=== PATIENT | female | born 1975 | race African-American/Black ===

== ENCOUNTER → 2016-12-22 | Outpatient (CLI) | payer OTHER ==
[2015-03-10 18:47] VITALS: BP 103/64
--- NOTE | 2016-12-22 19:02 | KCIC ---
Bilateral digital screening mammograms with CAD: HISTORY Routine screening COMPARISON Baseline exam. FINDINGS Breast density category C. The skin and nipples show no abnormalities. No abnormal lymph nodes are seen in the axilla. The breast parenchyma shows heterogeneous density. There are no dominant masses, suspicious calcifications or architectural distortions. IMPRESSION No evidence of malignancy. Recommend routine annual mammographic screening. This study was interpreted with the benefit of Computerized Aided Detection (CAD). Mammography is not 100% sensitive in detecting breast cancer. Therefore, a self breast exam and a clinical breast exam are very important. A negative mammogram does not negate a clinically suspicious finding and should not result in a delay in biopsying a clinically suspicious abnormality. BI-RADS category 1. Negative. This patient's information has been entered into a reminder system for the patient to be notified with the results of this examination and a target date for her next mammograms. Electronically signed by: Angelic Mehta MD (Dec 22, 2016 19:00:53)
== END | disposition home or self-care (01) ==
LOC: KCIC MAMMO 14:44
PROVIDERS: ATTEND Family Medicine
DX: Z12.31 Encounter for screening mammogram for malignant neoplasm of breast (principal)
CPT/HCPCS: G0202; 77067

== ENCOUNTER 2018-03-28 02:18 | Emergency (ER) | payer BC, OTHER ==
[2018-03-28] MEDS: KETOROLAC 15 MG/ML VIAL. IV (03:26)
[2018-03-28 03:46] LABS: BILIRUBIN,URINE NEGATIVE (NEG); CLARITY,URINE CLEAR; COLOR,URINE YELLOW; GLUCOSE,URINE NEGATIVE (NEG); NITRITE,URINE NEGATIVE (NEG); PH,URINE 5.5; PROTEIN,URINE NEGATIVE (NEG-TRACE); UROBILINOGEN,URINE 0.2 mg/dL (0.2 mg/dL)
[2018-03-28 03:48] LABS: ADD MAN DIFF? NO
[2018-03-28 03:50] LABS: BASO # 0.1 x10^3/uL (0.0-0.2); BASO % 1 % (0-3); EOS # 0.1 x10^3/uL (0.0-0.7); EOS % 2 % (0-3); HEMATOCRIT 36.8 % (36.0-47.0); HEMOGLOBIN 12.9 g/dL (12.0-15.5); LYMPH # 2.6 x10^3/uL (1.0-4.8); LYMPH % 33 % (24-48); MEAN CORPUSCULAR HEMOGLOBIN 32 pg (25-35); MEAN CORPUSCULAR HGB CONC 35 g/dL (31-37); MEAN CORPUSCULAR VOLUME 92 fL (79-100); MONO # 0.7 x10^3/uL (0.0-1.1); MONO % 9 % (0-9); NEUT # 4.5 x10^3uL (1.8-7.7); NEUT % 56 % (31-73); PLATELET COUNT 384 x10^3/uL (140-400); RED BLOOD COUNT 3.99 x10^6/uL (3.50-5.40); RED CELL DISTRIBUTION WIDTH 13.4 % (11.5-14.5); WHITE BLOOD COUNT 8.1 x10^3/uL (4.0-11.0)
[2018-03-28 04:08] LABS: ANION GAP 8 (6-14); BACTERIA,URINE 0 /HPF (0-FEW); BLOOD UREA NITROGEN 11 mg/dL (7-20); BUN/CREATININE RATIO 14 (6-20); CALCIUM 9.3 mg/dL (8.5-10.1); CARBON DIOXIDE 25 mmol/L (21-32); CHLORIDE 103 mmol/L (98-107); CREATININE 0.8 mg/dL (0.6-1.0); GFR 94.3; GLUCOSE 99 mg/dL (70-99); POTASSIUM 3.6 mmol/L (3.5-5.1); RBC,URINE OCC /HPF (0-2); SODIUM 136 mmol/L (136-145); WBC,URINE OCC /HPF (0-4)
[2018-03-28 04:09] LABS: SQUAMOUS EPITHELIAL CELL,UR MOD /LPF
[2018-03-28 04:11] LABS: NEG OBC SER NEG; POS OBC SER POS; PREG TEST PT QUAL NEGATIVE (NEG)
[2018-03-28 04:14] LABS: ALBUMIN 3.9 g/dL (3.4-5.0); ALBUMIN/GLOBULIN RATIO 1.1 (1.0-1.7); ALK PHOS 52 U/L (46-116); ALT (SGPT) 16 U/L (14-59); AST (SGOT) 13 U/L (15-37); LIPASE 147 U/L (73-393); TOTAL BILIRUBIN 0.5 mg/dL (0.2-1.0); TOTAL PROTEIN 7.6 g/dL (6.4-8.2)
[2018-03-28 04:24] LABS: TROPONINI < 0.017 ng/mL (0.000-0.055)
[2018-03-28] MEDS ORDERED: IOHEXOL 300 MG/ML 100ML VIAL. IV (05:45)
[2018-03-28] MEDS ORDERED: CONTRAST GIVEN. MC (05:45)
[2018-03-28 06:51] LABS: TROPONINI < 0.017 ng/mL (0.000-0.055)
[2018-03-28] MEDS: HYDROcodone/APAP 5/325MG 1 TAB TABLET PO (07:33)
== END 2018-03-28 07:49 | disposition home or self-care (01) ==
LOC: ER 02:18
DX: M51.34 Other intervertebral disc degeneration, thoracic region (principal); K44.9 Diaphragmatic hernia without obstruction or gangrene; R59.0 Localized enlarged lymph nodes; R07.81 Pleurodynia; Z90.49 Acquired absence of other specified parts of digestive tract; Z90.710 Acquired absence of both cervix and uterus; Z95.1 Presence of aortocoronary bypass graft; Z86.711 Personal history of pulmonary embolism; Z79.01 Long term (current) use of anticoagulants
CPT/HCPCS: 36415; 71045; 71275; 80053; 81001; 83690; 84484; 84703; 85025; 85379; 93005; 96374; 99285-25; J1885